=== PATIENT | male | born 1965 | race Caucasian/White ===

== ENCOUNTER 2018-01-07 11:21 | Emergency (ER) | payer BC ==
[2018-01-07 11:26] VITALS: TEMP 96.6
[2018-01-07] MEDS ORDERED: ADENOSINE 3 MG/ML 2 ML VIAL IVP STA (11:39)
[2018-01-07] MEDS ORDERED: SODIUM CHLORIDE 0.9% 1,000 ML IV STA (11:39)
--- NOTE | 2018-01-07 11:52 | ED ---
Chest Pain HPI - General Chief Complaint: Chest Pain Stated Complaint: Chest pain Time Seen by Provider: 01/07/18 11:30 Source: patient, RN notes reviewed Mode of arrival: wheelchair Limitations: no limitations - History of Present Illness Initial Comments: This is a 52-year-old male with a benign past history who states that about 30- 45 minutes prior to arrival he started developing dizziness with some pressure- like chest discomfort it was 7-8/10 in severity he just finished eating breakfast which included hurley and eggs or nothing unusual. He does not smoke he does not drink alcohol she has no prior history of heart or lung disease he does have older sister that had a pacer device placed however. No prior episodes such as this no other complaints at this time MD Complaint: chest pain, other - Related Data Home Medications Medication Instructions Recorded Confirmed Albuterol Inhaler [Ventolin Hfa 1 - 2 puff INHALATION RT-Q6H PRN 01/07/18 Inhaler] Ascorbic Acid [Vitamin C] 500 mg PO DAILY 01/07/18 01/07/18 Cholecalciferol [Vitamin D3] 1,000 unit PO DAILY 01/07/18 01/07/18 Desloratadine 5 mg PO HS 01/07/18 01/07/18 Fluticasone/Salmeterol [Advair 1 puff INHALATION RT-DAILY 01/07/18 01/07/18 500-50 Diskus] Li-Zyme Forte 1 tab PO DAILY 01/07/18 01/07/18 Magnesium 200 mg PO DAILY 01/07/18 01/07/18 Multivitamins, Thera [Multivitamin 1 tab PO DAILY 01/07/18 01/07/18 (formulary)] Pexeva 20mg 20 mg PO DAILY 01/07/18 01/07/18 clonazePAM [KlonoPIN] 0.25 mg PO BID 01/07/18 01/07/18 Previous Rx's Medication Instructions Recorded Verapamil Sr [Isoptin Sr] 120 mg PO DAILY #30 tablet.er 01/07/18 Allergies Allergy/AdvReac Type Severity Reaction Status Date / Time No Known Allergies Allergy Verified 01/07/18 12:16 Review of Systems ROS Statement: Those systems with pertinent positive or pertinent negative responses have been documented in the HPI. ROS Other: All systems not noted in ROS Statement are negative. EKG Findings - EKG Results: EKG: interpreted by ERMD (Initial EKG shows supraventricular tachycardia rate 198 QRS 80 QT since QTC of 234/[address] configuration.) Past Medical History Past Medical History: No Reported History History of Any Multi-Drug Resistant Organisms: Unobtainable Past Surgical History: No Surgical Hx Reported Past Psychological History: Depression Smoking Status: Never smoker Past Alcohol Use History: None Reported Past Drug Use History: None Reported General Exam - General Exam Comments Initial Comments: This is a well-developed well-nourished awake alert oriented 3 male Limitations: no limitations General appearance: alert, anxious, in distress Head exam: Present: atraumatic, normocephalic, normal inspection Eye exam: Present: normal appearance, PERRL, EOMI. Absent: scleral icterus, conjunctival injection, periorbital swelling ENT exam: Present: normal exam, mucous membranes moist Neck exam: Present: normal inspection. Absent: tenderness, meningismus, lymphadenopathy Respiratory exam: Present: normal lung sounds bilaterally. Absent: respiratory distress, wheezes, rales, rhonchi, stridor Cardiovascular Exam: Present: normal rhythm, tachycardia. Absent: systolic murmur, diastolic murmur, rubs, gallop, clicks GI/Abdominal exam: Present: soft, normal bowel sounds. Absent: distended, tenderness, guarding, rebound, rigid Extremities exam: Present: normal inspection, full ROM, normal capillary refill. Absent: tenderness, pedal edema, joint swelling, calf tenderness Back exam: Present: normal inspection Neurological exam: Present: alert, oriented X3, CN II-XII intact Psychiatric exam: Present: normal affect, normal mood Skin exam: Present: warm, dry, intact, normal color. 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 Patient did have SVT with conversion noted with brief episodes of PVCs then finally sinus rhythm. A repeat EKG done after the event shows a normal sinus rhythm of 84 GA interval 154 QRS 84 QT since QTC of 358/[address]-T wave changes. Procedures - Procedures Initial comment: The patient did demonstrate evidence of supraventricular tachycardia and did require chemical cardioversion. The patient had an IV established and 6 mg of adenosine was ordered. Patient's IV was in the left antecubital space. He 60 mg was administered followed by saline flush. Patient did respond with conversion to a normal sinus rhythm. Chest Pain MDM - [facility] X-rays unremarkable for acute findings. I did reevaluate patient several occasions he is feeling well with no recurrent symptoms. I did discuss findings with him and his . He does present with evidence of SVT and was successfully treated with adenosine discuss the case with Dr. Martínez was in the emergency department patient will be started on verapamil SR 120 mg and follow- up in the office. Critical Care Time Critical Care Time: Yes Critical Care Time: 33 minutes of critical care time which includes initial history physical monitoring while the patient was receiving a dental card. Several reevaluation of the patient to responsive therapy. Discussed with the patient family regarding findings discussed with cardiology. Documentation the above. Disposition Clinical Impression: Supraventricular tachycardia, Chest pain Disposition: HOME SELF-CARE Condition: Good Instructions: Chest Pain (ED), Supraventricular Tachycardia (ED) Prescriptions: Verapamil Sr [Isoptin Sr] 120 mg PO DAILY #30 tablet.er Referrals: Nonstaff,Physician [Primary Care Provider] - 1-2 days
--- NOTE | 2018-01-07 11:57 | XR ---
EXAMINATION TYPE: XR chest 2V DATE OF EXAM: 01/07/2018 HISTORY: dysrhythmia. REFERENCE: NONE. FINDINGS: The lungs are clear. Pleural spaces are clear. Heart size upper limits of normal. IMPRESSION: NO ACUTE INTRATHORACIC ABNORMALITY.
[2018-01-07 11:59] VITALS: RESP 18
[2018-01-07 12:03] LABS: Basophils # (A) 0.1 k/uL (0-0.2); Basophils % (A) 1 %; Eosinophils # (A) 0.6 k/uL (0-0.7); Eosinophils % (A) 6 %; HCT 48.1 % (39.0-53.0); HGB 15.7 gm/dL (13.0-17.5); Lymphocytes # (A) 2.9 k/uL (1.0-4.8); Lymphocytes % (A) 30 %; MCH 29.6 pg (25.0-35.0); MCHC 32.6 g/dL (31.0-37.0); MCV 90.7 fL (80.0-100.0); Mean Platelet Volume 7.2; Monocytes # (A) 0.7 k/uL (0-1.0); Monocytes % (A) 7 %; Neutrophils # (A) 5.2 k/uL (1.3-7.7); Neutrophils % (A) 53 %; Platelet Count 268 k/uL (150-450); RDW 13.1 % (11.5-15.5); WBC 9.8 k/uL (3.8-10.6)
[2018-01-07 12:12] LABS: ALT 31 U/L (21-72); AST 28 U/L (17-59); Albumin 4.5 g/dL (3.5-5.0); Alkaline Phosphatase 63 U/L (38-126); Anion Gap 13 mmol/L; Blood Urea Nitrogen 21 mg/dL (9-20); Calcium 10.2 mg/dL (8.4-10.2); Carbon Dioxide 22 mmol/L (22-30); Chloride 106 mmol/L (98-107); Glucose 101 mg/dL (74-99); Magnesium 2.1 mg/dL (1.6-2.3); Potassium 4.5 mmol/L (3.5-5.1); Sodium 141 mmol/L (137-145); Total Bilirubin 0.4 mg/dL (0.2-1.3); Total Protein 7.3 g/dL (6.3-8.2)
[2018-01-07 12:15] LABS: Prothrombin Time 9.6 sec (9.0-12.0)
[2018-01-07 12:20] LABS: D-Dimer 0.43 mg/L FEU (<0.60)
[2018-01-07 12:25] LABS: Creatine Kinase 75 U/L (55-170)
[2018-01-07 12:31] LABS: Partial Thromboplastin Time 21.7 sec (22.0-30.0)
[2018-01-07 12:39] LABS: Creatine Kinase MB <0.2 ng/mL (0.0-2.4); Troponin I <0.012 ng/mL (0.000-0.034)
[2018-01-07] MEDS ORDERED: VERAPAMIL SR 120 MG TABLET.ER PO STA (13:32)
[2018-01-07 14:35] VITALS: BP 109/81; PULSE 78
== END 2018-01-07 14:35 | disposition home or self-care (01) ==
LOC: EC 11:21
DX: I47.1 Supraventricular tachycardia (principal); F32.9 Major depressive disorder, single episode, unspecified; Z79.51 Long term (current) use of inhaled steroids; Z79.899 Other long term (current) drug therapy
CPT/HCPCS: 36415; 93005; 85379; 83880; 80053; 82550; 82553; 83735; 84443; 84484; 85025; 85610; 85730; 71046; 99285; 96374; 96361 ×3; J0153

== ENCOUNTER 2019-04-05 04:16 | Emergency (ER) | payer BC ==
[2019-04-05] MEDS ORDERED: IPRATROPIUM-ALBUTEROL 3 ML NEB INHALATION STA (04:30)
--- NOTE | 2019-04-05 05:16 | ED ---
SOB HPI - General Chief Complaint: Shortness of Breath Stated Complaint: Asthma attack Time Seen by Provider: 04/05/19 04:34 Source: patient, family Mode of arrival: ambulatory Limitations: no limitations - History of Present Illness Initial Comments: This patient is a 53-year-old man with history of asthma who presents with dyspnea and chest tightness that he states is similar to previous asthma exacerbation. The patient tried His rescue inhaler without much relief. States symptoms have been getting worse over the course of tonight. MD Complaint: shortness of breath, chest pain -: hour(s) Severity: moderate Quality: other (Tightness) Consistency: constant Improves With: nothing Worsens With: nothing Known History Of: asthma Treatments Prior to Arrival: none - Related Data Home Oxygen Therapy: No Home Medications Medication Instructions Recorded Confirmed Albuterol Inhaler [Ventolin Hfa 1 - 2 puff INHALATION RT-Q6H PRN 01/07/18 01/07/18 Inhaler] Ascorbic Acid [Vitamin C] 500 mg PO DAILY 01/07/18 01/07/18 Cholecalciferol [Vitamin D3] 1,000 unit PO DAILY 01/07/18 01/07/18 Desloratadine 5 mg PO HS 01/07/18 01/07/18 Fluticasone/Salmeterol [Advair 1 puff INHALATION RT-DAILY 01/07/18 01/07/18 500-50 Diskus] Li-Zyme Forte 1 tab PO DAILY 01/07/18 01/07/18 Magnesium 200 mg PO DAILY 01/07/18 01/07/18 Multivitamins, Thera [Multivitamin 1 tab PO DAILY 01/07/18 01/07/18 (formulary)] Pexeva 20mg 20 mg PO DAILY 01/07/18 01/07/18 clonazePAM [KlonoPIN] 0.25 mg PO BID 01/07/18 01/07/18 Previous Rx's Medication Instructions Recorded Verapamil Sr [Isoptin Sr] 120 mg PO DAILY #30 tablet.er 01/07/18 predniSONE 60 mg PO DAILY #30 tab 04/05/19 Allergies Allergy/AdvReac Type Severity Reaction Status Date / Time No Known Allergies Allergy Verified 04/05/19 04:24 Review of Systems ROS Statement: Those systems with pertinent positive or pertinent negative responses have been documented in the HPI. ROS Other: All systems not noted in ROS Statement are negative. Constitutional: Denies: fever, chills Respiratory: Reports: as per HPI, dyspnea. Denies: cough, hemoptysis Cardiovascular: Reports: as per HPI, chest pain. Denies: palpitations, orthopnea, edema Gastrointestinal: Denies: abdominal pain, nausea, vomiting Genitourinary: Denies: dysuria Musculoskeletal: Denies: back pain Skin: Denies: rash Neurological: Denies: headache, weakness, numbness Past Medical History Past Medical History: Asthma Additional Past Medical History / Comment(s): SVT History of Any Multi-Drug Resistant Organisms: None Reported Past Surgical History: No Surgical Hx Reported Past Psychological History: Depression Smoking Status: Never smoker Past Alcohol Use History: None Reported Past Drug Use History: None Reported General Exam Limitations: no limitations General appearance: alert, in no apparent distress Head exam: Present: atraumatic, normocephalic Eye exam: Present: normal appearance. Absent: scleral icterus, conjunctival injection ENT exam: Present: normal oropharynx Neck exam: Present: normal inspection Respiratory exam: Present: wheezes. Absent: respiratory distress, rales, rhonchi, stridor Cardiovascular Exam: Present: regular rate, normal rhythm, normal heart sounds. Absent: systolic murmur, diastolic murmur, rubs, gallop GI/Abdominal exam: Present: soft. Absent: distended, tenderness, guarding, rebound, rigid, mass Extremities exam: Present: normal inspection, normal capillary refill. Absent: pedal edema, calf tenderness Back exam: Present: normal inspection. Absent: CVA tenderness (R), CVA tenderness (L) Neurological exam: Present: alert Skin exam: Present: warm, dry, intact, normal color. Absent: rash Course Vital Signs 04/05/19 04/05/19 04/05/19 04:22 05:06 05:23 Temperature 97.7 F Pulse Rate 59 L 96 Respiratory 20 20 Rate Blood Pressure 127/89 O2 Sat by Pulse 100 Oximetry 04/05/19 05:28 Temperature Pulse Rate 96 Respiratory Rate Blood Pressure O2 Sat by Pulse Oximetry Medical Decision Making - Lab Data Result diagrams: 04/05/19 05:27 04/05/19 05:27 Lab Results 04/05/19 04/05/19 04/05/19 Range/Units 05:27 05:27 05:27 WBC 9.0 (3.8-10.6) k/uL RBC 5.18 (4.30-5.90) m/uL Hgb 15.1 (13.0-17.5) gm/dL Hct 46.1 (39.0-53.0) % MCV 88.9 (80.0-100.0) fL MCH 29.2 (25.0-35.0) pg MCHC 32.8 (31.0-37.0) g/dL RDW 14.2 (11.5-15.5) % Plt Count 283 (150-450) k/uL Neutrophils % 47 % Lymphocytes % 34 % Monocytes % 7 % Eosinophils % 6 % Basophils % 1 % Neutrophils # 4.3 (1.3-7.7) k/uL Lymphocytes # 3.0 (1.0-4.8) k/uL Monocytes # 0.7 (0-1.0) k/uL Eosinophils # 0.6 (0-0.7) k/uL Basophils # 0.1 (0-0.2) k/uL D-Dimer 0.31 (<0.60) mg/L FEU Sodium 140 (137-145) mmol/L Potassium 4.1 (3.5-5.1) mmol/L Chloride 108 H (98-107) mmol/L Carbon Dioxide 22 (22-30) mmol/L Anion Gap 10 mmol/L BUN 20 (9-20) mg/dL Creatinine 0.85 (0.66-1.25) mg/dL Est GFR (CKD-EPI)AfAm >90 (>60 ml/min/1.73 sqM) Est GFR (CKD-EPI)NonAf >90 (>60 ml/min/1.73 sqM) Glucose 104 H (74-99) mg/dL Calcium 9.8 (8.4-10.2) mg/dL Total Bilirubin 0.6 (0.2-1.3) mg/dL AST 30 (17-59) U/L ALT 27 (21-72) U/L Alkaline Phosphatase 65 (38-126) U/L Troponin I (0.000-0.034) ng/mL NT-Pro-B Natriuret Pep pg/mL Total Protein 7.5 (6.3-8.2) g/dL Albumin 4.6 (3.5-5.0) g/dL 04/05/19 04/05/19 Range/Units 05:27 05:27 WBC (3.8-10.6) k/uL RBC (4.30-5.90) m/uL Hgb (13.0-17.5) gm/dL Hct (39.0-53.0) % MCV (80.0-100.0) fL MCH (25.0-35.0) pg MCHC (31.0-37.0) g/dL RDW (11.5-15.5) % Plt Count (150-450) k/uL Neutrophils % % Lymphocytes % % Monocytes % % Eosinophils % % Basophils % % Neutrophils # (1.3-7.7) k/uL Lymphocytes # (1.0-4.8) k/uL Monocytes # (0-1.0) k/uL Eosinophils # (0-0.7) k/uL Basophils # (0-0.2) k/uL D-Dimer (<0.60) mg/L FEU Sodium (137-145) mmol/L Potassium (3.5-5.1) mmol/L Chloride (98-107) mmol/L Carbon Dioxide (22-30) mmol/L Anion Gap mmol/L BUN (9-20) mg/dL Creatinine (0.66-1.25) mg/dL Est GFR (CKD-EPI)AfAm (>60 ml/min/1.73 sqM) Est GFR (CKD-EPI)NonAf (>60 ml/min/1.73 sqM) Glucose (74-99) mg/dL Calcium (8.4-10.2) mg/dL Total Bilirubin (0.2-1.3) mg/dL AST (17-59) U/L ALT (21-72) U/L Alkaline Phosphatase (38-126) U/L Troponin I <0.012 (0.000-0.034) ng/mL NT-Pro-B Natriuret Pep 14 pg/mL Total Protein (6.3-8.2) g/dL Albumin (3.5-5.0) g/dL - EKG Data -: EKG Interpreted by [place] EKG shows normal: sinus rhythm, axis (Normal), intervals (Normal), QRS complexes (Normal), ST-T waves (Normal) Rate: normal (Rate 61 bpm) Interpretation: normal EKG Disposition Clinical Impression: Asthma exacerbation Disposition: HOME SELF-CARE Condition: Good Instructions (If sedation given, give patient instructions): Asthma (ED) Prescriptions: predniSONE 60 mg PO DAILY #30 tab Is patient prescribed a controlled substance at d/c from ED?: No Referrals: Nonstaff,Physician [Primary Care Provider] - 1-2 days
[2019-04-05 05:48] LABS: Basophils # (A) 0.1 k/uL (0-0.2); Basophils % (A) 1 %; Eosinophils # (A) 0.6 k/uL (0-0.7); Eosinophils % (A) 6 %; HCT 46.1 % (39.0-53.0); HGB 15.1 gm/dL (13.0-17.5); Lymphocytes % (A) 34 %; MCH 29.2 pg (25.0-35.0); MCHC 32.8 g/dL (31.0-37.0); MCV 88.9 fL (80.0-100.0); Mean Platelet Volume 7.4; Monocytes # (A) 0.7 k/uL (0-1.0); Monocytes % (A) 7 %; Neutrophils # (A) 4.3 k/uL (1.3-7.7); Neutrophils % (A) 47 %; Platelet Count 283 k/uL (150-450); RBC 5.18 m/uL (4.30-5.90); RDW 14.2 % (11.5-15.5)
[2019-04-05 05:49] LABS: ALT 27 U/L (21-72); AST 30 U/L (17-59); Albumin 4.6 g/dL (3.5-5.0); Alkaline Phosphatase 65 U/L (38-126); Anion Gap 10 mmol/L; Blood Urea Nitrogen 20 mg/dL (9-20); Calcium 9.8 mg/dL (8.4-10.2); Carbon Dioxide 22 mmol/L (22-30); Chloride 108 mmol/L (98-107); Glucose 104 mg/dL (74-99); Potassium 4.1 mmol/L (3.5-5.1); Sodium 140 mmol/L (137-145); Total Bilirubin 0.6 mg/dL (0.2-1.3); Total Protein 7.5 g/dL (6.3-8.2)
--- NOTE | 2019-04-05 05:53 | XR ---
EXAM: XR Chest, 2 Views CLINICAL HISTORY: ITS.REASON XR Reason: difficulty breathing TECHNIQUE: Frontal and lateral views of the chest. COMPARISON: 01/07/18 x-ray IMPRESSION: Normal heart size. No consolidation or pleural effusion.
[2019-04-05] MEDS ORDERED: predniSONE 20 MG TAB PO STA (06:28)
[2019-04-05 07:03] VITALS: BP 123/87; PULSE 58; RESP 18; TEMP 97.5
== END 2019-04-05 07:03 | disposition home or self-care (01) ==
LOC: EC 04:16
DX: J45.901 Unspecified asthma with (acute) exacerbation (principal); F32.9 Major depressive disorder, single episode, unspecified; Z79.899 Other long term (current) drug therapy
CPT/HCPCS: 36415; 71046; 80053; 83880; 84484; 85025; 85379; 93005; 94640; 99285

== ENCOUNTER 2024-08-02 14:38 | Inpatient (IN) | payer BC ==
[2024-08-02] MEDS ORDERED: ACETAMINOPHEN TAB 325 MG TAB PO PRN (14:45)
[2024-08-02] MEDS ORDERED: NALOXONE 0.4 MG/ML 1 ML VIAL IV PRN (14:45)
[2024-08-02] MEDS: HEPARIN SODIUM 1,000 UN/ML (10ML VL) IV ONE ×2 (14:47→15:13)
[2024-08-02] MEDS: ATORVASTATIN 80 MG TAB PO STA (14:47)
--- NOTE | 2024-08-02 14:49 | ED ---
General Adult HPI - General Chief complaint: Chest Pain Stated complaint: Chest pain Time Seen by Provider: 08/02/24 14:40 Source: patient, EMS, RN notes reviewed, old records reviewed Mode of arrival: EMS - History of Present Illness Initial comments: 59-year-old male presents with chief complaint of chest pain, chest pressure. Patient has no prior history of cardiac disease. He states he was [place], developed chest pressure followed by chest pain with associated nausea and diaphoresis. Patient had called [address] with [address] segment changes concerning for [place]. Patient was given aspirin and nitroglycerin in transport. - Related Data Home Medications Medication Instructions Recorded Confirmed Albuterol Inhaler [Ventolin Hfa 1 - 2 puff INHALATION RT-Q6H PRN 01/07/18 01/07/18 Inhaler] Ascorbic Acid [Vitamin C] 500 mg PO DAILY 01/07/18 01/07/18 Cholecalciferol [Vitamin D3] 1,000 unit PO DAILY 01/07/18 01/07/18 Desloratadine 5 mg PO HS 01/07/18 01/07/18 Fluticasone Propion/Salmeterol 1 puff INHALATION RT-DAILY 01/07/18 01/07/18 [Advair 500-50 Diskus] Li-Zyme Forte 1 tab PO DAILY 01/07/18 01/07/18 Magnesium 200 mg PO DAILY 01/07/18 01/07/18 Multivitamins, Thera [Multivitamin 1 tab PO DAILY 01/07/18 01/07/18 (formulary)] Pexeva 20mg 20 mg PO DAILY 01/07/18 01/07/18 clonazePAM [KlonoPIN] 0.25 mg PO BID 01/07/18 01/07/18 Previous Rx's Medication Instructions Recorded Verapamil Sr [Isoptin Sr] 120 mg PO DAILY #30 tablet.er 01/07/18 predniSONE 60 mg PO DAILY #30 tab 04/05/19 Allergies Allergy/AdvReac Type Severity Reaction Status Date / Time No Known Allergies Allergy Verified 08/02/24 14:44 Review of Systems ROS Statement: Those systems with pertinent positive or pertinent negative responses have been documented in the HPI. ROS Other: All systems not noted in ROS Statement are negative. Past Medical History Past Medical History: Asthma Additional Past Medical History / Comment(s): SVT History of Any Multi-Drug Resistant Organisms: None Reported Past Surgical History: No Surgical Hx Reported Additional Past Surgical History / Comment(s): Ablation 2021 Past Psychological History: Depression Smoking Status: Never smoker Past Alcohol Use History: None Reported Past Drug Use History: None Reported General Exam General appearance: alert, in distress Head exam: Present: atraumatic, normocephalic Eye exam: Present: normal appearance, PERRL ENT exam: Present: normal exam Neck exam: Present: normal inspection. Absent: tenderness, meningismus Respiratory exam: Present: normal lung sounds bilaterally. Absent: respiratory distress Cardiovascular Exam: Present: regular rate, normal rhythm GI/Abdominal exam: Present: soft. Absent: distended, tenderness, guarding Extremities exam: Present: normal inspection, normal capillary refill Neurological exam: Present: alert, oriented X3 Psychiatric exam: Present: anxious Skin exam: Present: diaphoretic. Absent: cyanosis Course Vital Signs 08/02/24 08/02/24 14:39 14:51 Pulse Rate 77 71 Respiratory 20 20 Rate Blood Pressure 115/79 112/73 O2 Sat by Pulse 97 97 Oximetry Medical Decision Making - Medical Decision Making Was pt. sent in by a medical professional or institution ([facility], [employer], urgent care, hospital, or snf...) When possible be specific @ -No Did you speak to anyone other than the patient for history (EMS, parent, family, police, friend...)? What history was obtained from this source @ -No Did you review nursing and triage notes (agree or disagree)? Why? @ -I reviewed and agree with nursing and triage notes Were old charts reviewed (outside hosp., previous admission, EMS record, old EKG, old radiological studies, urgent care reports/EKG's, snf records)? Report findings @ -No old charts were reviewed Differential Chest Pain: Stable Angina, Unstable Angina, STEMI, NSTEMI Aortic Dissection, Pneumothorax, Musculoskeletal, Esophageal Spasm GERD, Cholecystitis, Pancreatitis, Zoster, this is not meant to be an all-inclusive list. EKG interpreted by me (3pts min.). @ -[Sinus rhythm with ST segment elevation in lead I and the lateral precordial leads. This is more pronounced on paramedics EKG. Ventricular rate of 73, VT interval 178, QRS duration 99, QTc 412 X-rays interpreted by me (1pt min.). @Single view chest x-ray interpreted by me, no pneumothorax, no focal pneumonia, no acute findings CT interpreted by me (1pt min.). @ -None done U/S interpreted by me (1pt. min.). @ -None done What testing was considered but not performed or refused? (CT, X-rays, U/S, labs)? Why? @ -None What meds were considered but not given or refused? Why? @ -None Did you discuss the management of the patient with other professionals (professionals i.e. DrAngeles, PA, AGILE JAVA DEVELOPER, lab, RT, psych nurse, social insurance adviser, financial services agent, teacher, deputy probation officer, disease case manager)? Give summary @ -No Was smoking cessation discussed for >3mins.? @ -No Was critical care preformed (if so, how long)? @ -[Yes 35 minutes including prehospital evaluation of EKG Were there social determinants of health that impacted care today? How? (Homelessness, low income, unemployed, alcoholism, drug addiction, transportation, low edu. Level, literacy, decrease access to med. care, fci, rehab)? @ -No Was there de-escalation of care discussed even if they declined (Discuss DNR or withdrawal of care, Hospice)? DNR status @ -No What co-morbidities impacted this encounter? (DM, HTN, Smoking, COPD, CAD, Cancer, CVA, ARF, Chemo, Hep., AIDS, mental health diagnosis, sleep apnea, morb id obesity)? @ -None Was patient admitted / discharged? Hospital course, mention meds given and route, prescriptions, significant lab abnormalities, going to OR and other pertinent info. @ -[59-year-old male presenting with ST segment elevated [place] with typical features of chest pain, nausea and diaphoresis. Patient is given aspirin, nitroglycerin, heparin, Lipitor and taken emergently to the [facility] with Dr. Murray moya for cardiology. Case discussed with Dr. Rouse who will admit Undiagnosed new problem with uncertain prognosis? @ -No Drug Therapy requiring intensive monitoring for toxicity (Heparin, Nitro, Insulin, Cardizem)? @ -No Were any procedures done? @ -No Diagnosis/symptom? @ -[STEMI Acute, or Chronic, or Acute on Chronic? @Acute Uncomplicated (without systemic symptoms) or Complicated (systemic symptoms)? @ -Default Side effects of treatment? @ -No Exacerbation, Progression, or Severe Exacerbation? @ -No Poses a threat to life or bodily function? How? (Chest pain, [place], [place], pneumonia, PE, COPD, DKA, ARF, appy, cholecystitis, CVA, Diverticulitis, Homicidal, Suicidal, threat to staff... and all critical care pts) @ -[Yes, ACS Critical Care Time Critical Care Time: Yes Total Critical Care Time: 35 Disposition Clinical Impression: ST elevation myocardial infarction (STEMI) Disposition: ADMITTED IP TO THIS HOSP Condition: Serious Is patient prescribed a controlled substance at d/c from ED?: No Referrals: Nonstaff,Physician [Primary Care Provider] - 1-2 days Time of Disposition: 15:00
[2024-08-02 14:57] LABS: Basophils # (A) 0.1 k/uL (0-0.2); Basophils % (A) 1 %; Eosinophils # (A) 0.5 k/uL (0-0.7); Eosinophils % (A) 6 %; HCT 44.9 % (39.0-53.0); HGB 15.2 gm/dL (13.0-17.5); Lymphocytes # (A) 2.3 k/uL (1.0-4.8); Lymphocytes % (A) 26 %; MCH 29.9 pg (25.0-35.0); MCHC 33.8 g/dL (31.0-37.0); MCV 88.5 fL (80.0-100.0); Mean Platelet Volume 7.6; Monocytes # (A) 0.5 k/uL (0-1.0); Monocytes % (A) 6 %; Neutrophils # (A) 5.1 k/uL (1.3-7.7); Neutrophils % (A) 58 %; Platelet Count 320 k/uL (150-450); RBC 5.07 m/uL (4.30-5.90); RDW 13.7 % (11.5-15.5); WBC 8.8 k/uL (3.8-10.6)
[2024-08-02] MEDS: MIDAZOLAM 2 MG/2 ML VIAL IVP ONE (15:02)
[2024-08-02] MEDS: fentaNYL (PF) 50 MCG/1 ML VIAL IVP ONE (15:02)
[2024-08-02] MEDS: LIDOCAINE 1% INJ 10MG/ML (20 ML MDV) SQ ONE (15:04)
--- NOTE | 2024-08-02 15:04 | XR ---
EXAMINATION TYPE: XR chest 1V portable DATE OF EXAM: 08/02/2024 Comparison: 04/05/2019 Clinical History: 59-year-old male chest pain Findings: Heart normal size. Aorta and pulmonary vasculature within normal limits. No consolidation or pleural effusion. Hazy densities relating to portable technique and body habitus. Impression: No definite acute process. [facility], Workstation: [facility], 08/02/2024 3:01 PM
[2024-08-02] MEDS: VERAPAMIL 2.5 MG/ML 2 ML AMP INTRAARTER ONE (15:05)
[2024-08-02] MEDS: SODIUM CHLORIDE 0.9% 1,000 ML IV ONE (15:07)
[2024-08-02 15:15] LABS: INR 0.9 (<1.2); Partial Thromboplastin Time 23.5 sec (22.0-30.0); Prothrombin Time 10.4 sec (10.0-12.5)
[2024-08-02] MEDS: IOPAMIDOL-370 100ML BTL INJ ONE ×2 (15:20→15:21)
[2024-08-02] MEDS ORDERED: RX INFO: IV CONTRAST WAS GIVEN 1 EACH MISC MISCELLANE PRN (15:45)
[2024-08-02 15:50] LABS: ALT 33 U/L (4-49); AST 37 U/L (17-59); African American GFR (CKD) >90 (>60 ml/min/1.73 sqM); Albumin 4.3 g/dL (3.5-5.0); Alkaline Phosphatase 60 U/L (38-126); Anion Gap 10 mmol/L; Blood Urea Nitrogen 23 mg/dL (9-20); Calcium 10.1 mg/dL (8.4-10.2); Carbon Dioxide 20 mmol/L (22-30); Chloride 108 mmol/L (98-107); Glucose 149 mg/dL (74-99); Non-African American GFR(CKD) >90 (>60 ml/min/1.73 sqM); Sodium 138 mmol/L (137-145); Total Bilirubin 0.7 mg/dL (0.2-1.3); Total Protein 7.2 g/dL (6.3-8.2)
[2024-08-02] MEDS: SODIUM CHLORIDE 0.9% 1,000 ML IV SCH (16:17)
[2024-08-02] MEDS: LOSARTAN 25 MG TAB PO SCH (16:26)
[2024-08-02] MEDS: DAPAGLIFLOZIN PROPANEDIOL 10 MG TABLET PO SCH (16:26)
[2024-08-02] MEDS ORDERED: clonazePAM 0.5 MG TAB PO PRN (17:57)
[2024-08-02] MEDS ORDERED: ALBUTEROL HFA INHALER INHALATION PRN (17:57)
--- NOTE | 2024-08-02 18:00 | P.HPIM ---
History of Present Illness H&P Date: 08/02/24 Chief Complaint: chest pain Patient is a 59-year-old male with a past medical history of asthma and anxiety who presents to the ED for possible STEMI. Patient states that he was cutting wood and then started having left-sided pressure-like chest pain. Patient then went to go sit in the garage and thought it would go away. However the pain would not go away so went to his neighbor's house and had them call 911. In the EMS patient was given sublingual nitro which helped to relieve some of his pain. EKG showed ST elevations in the lateral leads. When patient arrived to the ED he was taken emergently for heart catheterization. I was told by the nurse that the heart cath was negative for any significant coronary disease but did reveal Takotsubo cardiomyopathy. At the time of this document the heart cath report is pending. Patient currently denying chest pain. ROS: 10 ROS reviewed and are negative except as noted in HPI Physical exam General: No acute distress Eye: [PERRL, EOMI, normal conjunctiva]. HENT: [Normocephalic, clear tympanic membranes, normal hearing, moist oral mucosa, no scleral icterus, no sinus tenderness]. Neck: [Supple, non-tender, no carotid bruits, no JVD, no lymphadenopathy]. Lungs: [Clear to auscultation and percussion, non-labored respiration]. Heart: [Normal rate, regular rhythm, no murmur, gallop or edema]. Abdomen: [Soft, non-tender, non-distended, normal bowel sounds, no masses]. Musculoskeletal: [Normal range of motion and strength, no tenderness or swelling]. Skin: [Skin is warm, dry and pink, no rashes or lesions]. Neurologic: [Awake, alert, and oriented X3, CN II-XII intact]. Psychiatric: [Cooperative, appropriate mood and affect]. Assessment and plan Chest pain likely due to stable angina Patient had heart cath and no intervention was done Cardiology following Takotsubo cardiomyopathy Cardiology started the patient on losartan and Farxiga Check echocardiogram Elevated troponin likely due to the above Follow-up on final read of the heart cath Asthma Stable Continue with home inhalers Anxiety Continue with clonazepam as needed DVT prophylaxis: Low VTE score. Encourage early ambulation Past Medical History Past Medical History: Asthma Additional Past Medical History / Comment(s): SVT History of Any Multi-Drug Resistant Organisms: None Reported Past Surgical History: No Surgical Hx Reported Additional Past Surgical History / Comment(s): Ablation 2021 Past Psychological History: Depression Smoking Status: Former smoker Past Alcohol Use History: None Reported Past Drug Use History: None Reported Medications and Allergies Home Medications Medication Instructions Recorded Confirmed Type Albuterol Inhaler [Ventolin Hfa 1 - 2 puff INHALATION RT-Q6H PRN 01/07/18 08/02/24 History Inhaler] Ascorbic Acid [Vitamin C] 500 mg PO DAILY 01/07/18 08/02/24 History Cholecalciferol [Vitamin D3] 1,000 unit PO DAILY 01/07/18 08/02/24 History Fluticasone Propion/Salmeterol 1 puff INHALATION RT-DAILY 01/07/18 08/02/24 History [Advair 500-50 Diskus] Magnesium 200 mg PO DAILY 01/07/18 08/02/24 History Multivitamins, Thera [Multivitamin 1 tab PO DAILY 01/07/18 08/02/24 History (formulary)] clonazePAM [KlonoPIN] 0.25 mg PO DAILY PRN 01/07/18 08/02/24 History Allergies Allergy/AdvReac Type Severity Reaction Status Date / Time No Known Allergies Allergy Verified 08/02/24 14:44 Physical Exam Osteopathic Statement: *. No significant issues noted on an osteopathic structural exam other than those noted in the History and Physical/Consult. Vitals: Vital Signs Temp Pulse Pulse Resp BP BP Pulse Ox 08/02/24 16:21 98.1 F 69 18 108/71 95 08/02/24 14:51 71 20 112/73 97 08/02/24 14:39 77 20 115/79 97 Intake and Output 08/02/24 08/02/24 08/02/24 06:59 14:59 22:59 Intake Total 150 Balance 150 Intake: IV 150 Other: Weight 81.647 kg 81.647 kg Results CBC & Chem 7: 08/02/24 14:40 08/02/24 14:40 Labs: Abnormal Lab Results - Last 24 Hours (Table) 08/02/24 08/02/24 Range/Units 14:40 14:40 Chloride 108 H (98-107) mmol/L Carbon Dioxide 20 L (22-30) mmol/L BUN 23 H (9-20) mg/dL Glucose 149 H (74-99) mg/dL Troponin I 0.231 H* (0.000-0.034) ng/mL
--- NOTE | 2024-08-02 20:52 | P.CRDCN ---
History of Present Illness Consult date: 08/02/24 History of present illness: HISTORY OF PRESENTING ILLNESS Patient is a 59-year-old with past medical history of asthma with no prior cardiovascular history presents the hospital because of complaining of left- sided substernal chest pressure like symptoms along with difficulty in breathing and nausea. On admission to ER there was concern of possible ST elevations in l ateral leads involving 1, aVL, V4 and V5. For this cardiology was contacted on emergency basis and STEMI was activated by the ER doctor. Bedside echocardiogram showed an EF of 35% with apical wall hypokinesia Due to these findings and active chest pain, decision was made to proceed with emergent cardiac catheterization for STEMI. Verbal consent was obtained after explaining the risk of stroke [place] or vascular injury. Patient understood these risks factors and agreed to proceed. He denies any history of smoking, recreational drug use marijuana use or alcohol use REVIEW OF SYSTEMS 14 point review of system is negative except what is mentioned above in HPI. PHYSICAL EXAMINATION Vital signs reviewed. Head: Normocephalic. Eyes: Sclerae nonicteric. Neck: Brisk carotid upstroke, no jugular venous distention. Lungs: Clear to auscultation. Heart: Regular rate and rhythm, S1-S2, no S3, no murmur or rub. Abdomen: Soft nontender, positive bowel sounds. Extremities: No edema, intact distal pulses. Neuro: Alert, oritented, no focal deficits. Detailed neuro exam was not performed. a ASSESSMENT Lateral STEMI Apical wall hypokinesia on bedside echocardiogram Substernal chest pressure PLAN Emergent cardiac catheterization Further recommendations to follow Antonio Gao MD, FACC, RPVI Thank you for allowing [facility] to participate in this patient's care. Feel free to reach out in case of any followup questions. Past Medical History Past Medical History: Asthma Additional Past Medical History / Comment(s): SVT History of Any Multi-Drug Resistant Organisms: None Reported Past Surgical History: No Surgical Hx Reported Additional Past Surgical History / Comment(s): Ablation 2021 Past Psychological History: Depression Smoking Status: Former smoker Past Alcohol Use History: None Reported Past Drug Use History: None Reported Medications and Allergies Home Medications Medication Instructions Recorded Confirmed Type Albuterol Inhaler [Ventolin Hfa 1 - 2 puff INHALATION RT-Q6H PRN 01/07/18 08/02/24 History Inhaler] Fluticasone Propion/Salmeterol 1 puff INHALATION RT-BID 01/07/18 08/02/24 History [Advair 500-50 Diskus] ALPRAZolam [Xanax] 0.25 mg PO HS 08/02/24 08/02/24 History FLUoxetine HCL [PROzac] 10 mg PO DAILY 08/02/24 08/02/24 History FLUoxetine HCL [PROzac] 20 mg PO DAILY 08/02/24 08/02/24 History Montelukast [Singulair] 10 mg PO HS 08/02/24 08/02/24 History tadalafiL 10 mg PO DAILY PRN 08/02/24 08/02/24 History traZODone HCL [Desyrel] 50 mg PO HS 08/02/24 08/02/24 History Allergies Allergy/AdvReac Type Severity Reaction Status Date / Time No Known Allergies Allergy Verified 08/02/24 18:23 Physical Exam Vitals: Vital Signs Temp Pulse Pulse Resp BP BP Pulse Ox 08/02/24 19:51 98.1 F 69 18 105/81 98 08/02/24 16:21 98.1 F 69 18 108/71 95 08/02/24 14:51 71 20 112/73 97 08/02/24 14:39 77 20 115/79 97 Intake and Output 08/02/24 08/02/24 08/02/24 06:59 14:59 22:59 Intake Total 410 Balance 410 Intake: IV 170 Invasive Line 1 10 Invasive Line 2 10 Oral 240 Other: Weight 81.647 kg 81.647 kg Results 08/02/24 14:40 08/02/24 14:40 Cardiac Enzymes 08/02/24 08/02/24 Range/Units 14:40 14:40 AST 37 (17-59) U/L Troponin I 0.231 H* (0.000-0.034) ng/mL Coagulation 08/02/24 Range/Units 14:40 PT 10.4 (10.0-12.5) sec APTT 23.5 (22.0-30.0) sec CBC 08/02/24 Range/Units 14:40 WBC 8.8 (3.8-10.6) k/uL RBC 5.07 (4.30-5.90) m/uL Hgb 15.2 (13.0-17.5) gm/dL Hct 44.9 (39.0-53.0) % Plt Count 320 (150-450) k/uL Comprehensive Metabolic Panel 08/02/24 Range/Units 14:40 Sodium 138 (137-145) mmol/L Potassium 4.0 (3.5-5.1) mmol/L Chloride 108 H (98-107) mmol/L Carbon Dioxide 20 L (22-30) mmol/L BUN 23 H (9-20) mg/dL Creatinine 0.87 (0.66-1.25) mg/dL Glucose 149 H (74-99) mg/dL Calcium 10.1 (8.4-10.2) mg/dL AST 37 (17-59) U/L ALT 33 (4-49) U/L Alkaline Phosphatase 60 (38-126) U/L Total Protein 7.2 (6.3-8.2) g/dL Albumin 4.3 (3.5-5.0) g/dL Current Medications Generic Name Dose Route Start Last Admin Trade Name Anilq PRN Reason Stop Dose Admin Acetaminophen 650 mg 08/02/24 14:45 Acetaminophen Tab 325 Mg Tab PO Q6HR PRN Mild Pain or Fever > 100.5 Albuterol Sulfate 2 puff 08/02/24 17:57 Albuterol Hfa Inhaler INHALATION RT-Q6H PRN Shortness Of Breath Budesonide/Formoterol Fumarate 2 puff 08/03/24 08:00 Symbicort 160-4.5 Mcg Inhaler INHALATION RT-BID KVNG Dapagliflozin 10 mg 08/02/24 16:00 08/02/24 16:26 Dapagliflozin Propanediol 10 Mg Tablet PO 10 mg DAILY KVNG Administration Losartan Potassium 12.5 mg 08/02/24 16:00 08/02/24 16:26 Losartan 25 Mg Tab PO 12.5 mg DAILY KVNG Administration Magnesium Oxide 200 mg 08/03/24 09:00 Magnesium Oxide 400 Mg Tab PO DAILY [facility] Miscellaneous Information 1 each 08/02/24 15:45 Rx Info: Iv Contrast Was Given 1 Each Misc MISCELLANE 08/04/24 15:45 DAILY PRN Per Protocol Multivitamins 1 each 08/03/24 09:00 Multivitamins, Thera 1 Each Tab PO DAILY KVNG Naloxone HCl 0.2 mg 08/02/24 14:45 Naloxone 0.4 Mg/Ml 1 Ml Vial IV Q2M PRN Opioid Reversal Nitroglycerin 0.4 mg 08/02/24 14:40 Nitroglycerin Sl Tabs 0.4 Mg Tab SUBLINGUAL Q5M PRN Chest Pain Intake and Output 08/02/24 08/02/24 08/02/24 06:59 14:59 22:59 Intake Total 410 Balance 410 Intake: IV 170 Invasive Line 1 10 Invasive Line 2 10 Oral 240 Other: Weight 81.647 kg 81.647 kg Patient Weight 08/03/24 06:59 Weight 81.647 kg 08/02/24 14:40 08/02/24 14:40
--- NOTE | 2024-08-02 20:55 | P.CARDCATH ---
Date of Procedure: 08/02/24 Description of Procedure: DIAGNOSTIC CORONARY ANGIOGRAPHY and LEFT HEART CATH REPORT PROCEDURES PERFORMED: Left heart catheterization Selective coronary angiography Left ventriculography Moderate conscious sedation 20 mins Right radial access INDICATION: Lateral STEMI CONSENT: I have explained the procedural steps of above-mentioned procedures in layman's terms to the patient. I discussed the risks (including but not limited to stroke, emergent vascular or cardiac surgery or ), benefits and al ternative therapies for the above-mentioned procedure. I discussed the risks of sedation/analgesia and blood product administration (if indicated). The patient has indicated understanding and acceptance of these risks. Conscious Sedation: Patient's ECG, heart rate, blood pressure, pulse oximetry were monitored throughout the duration of procedure under my direct supervision. [2] mg Versed and [50] mcg Fentanyl were used for induction of moderate conscious sedation. Total duration of moderate concious sedation 20 minutes. PROCEDURE: After explaining the risks, benefits and alternatives of the above mentioned procedures in detail to the patient, informed consent was obtained. Patient was taken to the catheterization lab, prepped and draped in usual sterile fashion using universal precuations. Ultrasound was used to identify the radial artery. 1% lidocaine was infiltrated over the right radial artery. A 6-[place] sheath was placed and secured in the right radial artery using modified Seldinger technique. The sheath was flushed and 5 mg verapamil was administered intra-arterially. J tipped wire was advanced under fluoroscopic guidance. Once the wire tip reached aortic root [5000] units of IV heparin was given. Over the wire JR4 diagnostic catheter was advanced. The wire in place the catheter was manipulated to cross the aortic valve and entered into LV under fluoroscopy guidance. The wire was removed and the catheter was flushed. LV pressures were obtained and pullback was performed under fluoroscopy. Catheter was manipulated to selectively engage the right coronary ostium. Right coronary angiography was performed in different angiographic projections. The JR4 diagnostic catheter was exchanged for a JL 3.5 diagnostic catheter over the J-wire. The wire was removed, catheter was flushed and manipulated under fluoroscopy to selectively engaged the left coronary ostium. Left coronary angioplasty was performed in different angiographic projections. Pigtail catheter was utilized to cross the aortic valve with the help of a wire. The wire was removed and the catheter was flushed. Using a power injector left- ventricular gram was performed. Catheter was removed over the wire. Radial sheath was flushed. The right radial sheath was removed and a TR band was placed with excellent patent hemostasis was achieved. The patient tolerated the procedure well. Patient was transported back to the post catheterization holding area in stable condition. Angiographic images were reviewed in detail. HEMODYNAMICS: Aortic Pressure: 100/64 mmHg. LV pressure: 108/0 mmHg. LVEDP 22 mmHg. There was no significant gradient across the aortic valve. SELECTIVE CORONARY ARTERIOGRAPHY: LEFT MAIN: The left main is short and large caliber vessel. It bifurcates into the LAD and circumflex. Left main appears angiographically normal. LEFT ANTERIOR DESCENDING CORONARY ARTERY: LAD is a large caliber vessel which wraps around to the apex. Proximal LAD appears angiographically normal. Mid LAD appears angiographically normal. Distal LAD appears angiographically normal. It gives rise to 2 diagonal branches which appear angiographically normal. LEFT CIRCUMFLEX CORONARY ARTERY: It is nondominant vessel. Left circumflex is a moderate caliber vessel. It appears angiographically normal. LCx gives rise to small OM branches which are angiographically patent. RIGHT CORONARY ARTERY: Dominant vessel. The right coronary artery is a large caliber vessel which gives PDA and PLV branch. It appears angiographically normal. Left ventriculography showed an EF of 30 to 35% with large apical wall akinesia with hyperdynamic base. IMPRESSION: Angiographically normal coronary arteries as described above. Elevated LVEDP Apical hypokinesia with hyperdynamic base, findings consistent with Takotsubo cardiomyopathy PLAN: 75 cc/h for 5 hours Obtain echocardiogram Start losartan 12.5 mg, Jardiance 10 mg daily. Monitor blood pressure heart rate and kidney function. Further recommendations to follow Performing Physician Antonio Gao MD, FACC, RPVI Thank you for allowing [facility] to participate in this patient's care. Feel free to reach out in case of any followup questions.
[2024-08-03 06:47] LABS: Basophils # (A) 0.1 k/uL (0-0.2); Basophils % (A) 1 %; Eosinophils # (A) 0.4 k/uL (0-0.7); Eosinophils % (A) 4 %; HCT 45.6 % (39.0-53.0); HGB 15.2 gm/dL (13.0-17.5); Lymphocytes # (A) 1.9 k/uL (1.0-4.8); Lymphocytes % (A) 16 %; MCH 30.1 pg (25.0-35.0); MCHC 33.3 g/dL (31.0-37.0); MCV 90.2 fL (80.0-100.0); Mean Platelet Volume 7.7; Monocytes # (A) 0.7 k/uL (0-1.0); Monocytes % (A) 6 %; Neutrophils # (A) 8.5 k/uL (1.3-7.7); Neutrophils % (A) 71 %; Platelet Count 270 k/uL (150-450); RBC 5.06 m/uL (4.30-5.90); RDW 13.6 % (11.5-15.5); WBC 11.9 k/uL (3.8-10.6)
[2024-08-03 07:05] LABS: ALT 31 U/L (4-49); AST 47 U/L (17-59); African American GFR (CKD) >90 (>60 ml/min/1.73 sqM); Albumin 3.9 g/dL (3.5-5.0); Alkaline Phosphatase 58 U/L (38-126); Anion Gap 4 mmol/L; Blood Urea Nitrogen 18 mg/dL (9-20); Calcium 9.4 mg/dL (8.4-10.2); Carbon Dioxide 22 mmol/L (22-30); Chloride 108 mmol/L (98-107); Glucose 96 mg/dL (74-99); Non-African American GFR(CKD) >90 (>60 ml/min/1.73 sqM); Potassium 4.2 mmol/L (3.5-5.1); Sodium 134 mmol/L (137-145); Total Bilirubin 0.9 mg/dL (0.2-1.3); Total Protein 6.6 g/dL (6.3-8.2)
[2024-08-03 07:11] LABS: NT-Pro-B-Type Natriuretic Pept 1570 pg/mL
[2024-08-03] MEDS: NITROGLYCERIN SL TABS 0.4 MG TAB SUBLINGUAL PRN (08:18)
[2024-08-03] MEDS: SYMBICORT 160-4.5 MCG INHALER INHALATION SCH (08:20)
[2024-08-03] MEDS: MAGNESIUM OXIDE 400 MG TAB PO SCH (08:42)
[2024-08-03] MEDS: MULTIVITAMINS, THERA 1 EACH TAB PO SCH (08:42)
[2024-08-03 11:43] LABS: Chol/HDL Ratio 4.09 Ratio; LDL Cholesterol,Calculated 137.8 mg/dL (0.0-131.0)
[2024-08-03] MEDS: FLUoxetine HCL 10 MG CAP PO SCH (12:14)
[2024-08-03] MEDS: FLUoxetine HCL 20 MG CAP PO SCH (12:14)
[2024-08-03] MEDS: FAMOTIDINE 20 MG TAB PO SCH (12:14)
[2024-08-03] MEDS: METOPROLOL TARTRATE 12.5 MG TAB PO SCH (12:14)
--- NOTE | 2024-08-03 12:18 | CA ---
Transthoracic Echo Report Name: Elliot Dubose Age: 59 Gender: M : 1965 Exam Date: 08/02/2024 15:59 Exam Location: [facility] Ht (in): 65 Wt (lb): 180 Ordering Physician: Antonio Gao MD ([id number]) Attending/Referring Phys: Fire Prevention Specialist Sadaf Ricardo RDCS Procedure CPT: Indications: Takostubo cardiomyopathy Cardiac Hx: Technical Quality: Technically difficult study Contrast 1: Definity Total Dose (mL): 2 Contrast 2: Total Dose (mL): MEASUREMENTS (Male / Female) Normal Values 2D ECHO LV Diastolic Diameter PLAX 5.2 cm 4.2 - 5.9 / 3.9 - 5.3 cm LV Systolic Diameter PLAX 4.2 cm IVS Diastolic Thickness 0.8 cm 0.6 - 1.0 / 0.6 - 0.9 cm LVPW Diastolic Thickness 1.0 cm 0.6 - 1.0 / 0.6 - 0.9 cm LV Relative Wall Thickness 0.4 LVOT Diameter 2.3 cm LV Diastolic Volume MOD 4C 184.9 cm??? LV Systolic Volume MOD 4C 117.1 cm??? LV Ejection Fraction MOD 4C 36.7 % LV Cardiac Index MOD 4C 2282.4 cm???/min???m??? LV Diastolic Length 4C 9.0 cm LV Systolic Length 4C 8.2 cm LA Volume 59.5 cm??? 18 - 58 / 22 - 52 cm??? LA Volume Index 30.4 cm???/m??? 16 - 28 cm???/m??? Ascending Aorta Diameter 4.1 cm DOPPLER AV Peak Velocity 147.5 cm/s AV Peak Gradient 8.7 mmHg AV Mean Velocity 112.0 cm/s AV Mean Gradient 5.5 mmHg AV Velocity Time Integral 32.6 cm LVOT Peak Velocity 111.4 cm/s LVOT Peak Gradient 5.0 mmHg LVOT Velocity Time Integral 20.5 cm LVOT Stroke Volume 83.2 cm??? LVOT Stroke Volume Index 44.0 ml/m??? LVOT Cardiac Index 2799.9 cm???/min???m??? AV Area Cont Eq vti 2.6 cm??? AV Area Cont Eq pk 3.1 cm??? MV Area PHT 4.6 cm??? Mitral E Point Velocity 48.5 cm/s Mitral A Point Velocity 44.1 cm/s Mitral E to A Ratio 1.1 MV Deceleration Time 166.0 ms TR Peak Velocity 206.8 cm/s TR Peak Gradient 17.1 mmHg Right Atrial Pressure 5.0 mmHg Pulmonary Artery Systolic Pressu 22.1 mmHg Right Ventricular Systolic Press 22.1 mmHg PV Peak Velocity 87.1 cm/s PV Peak Gradient 3.0 mmHg FINDINGS Left Ventricle Left ventricular ejection fraction is estimated at 35-40 %. Left ventricular cavity size normal. Left ventricular wall thickness normal. Global hypokinesis with regional variability. Akinetic apex. Right Ventricle Normal right ventricular size and function. Right ventricular systolic pressure within normal limits. Right Atrium Right atrium not well visualized. Left Atrium Mildly increased left atrial volume. Mildly increased left atrial area. Mitral Valve Structurally normal mitral valve. No mitral stenosis, regurgitation or prolapse. Aortic Valve Trileaflet aortic valve. No aortic stenosis. Mild aortic regurgitation. Tricuspid Valve Structurally normal tricuspid valve. No tricuspid stenosis. Trace tricuspid regurgitation. Pulmonic Valve Structurally normal pulmonic valve. Mild pulmonic regurgitation. No pulmonic stenosis. Pericardium No pericardial effusion. Aorta Mildly enlarged sinus of valsalva and ascending aorta. CONCLUSIONS Diagnosis acute myocardial injury, possible CA 2D echo shows severe LV dysfunction ejection fraction less than 35% with large anterior apical area of akinesis/aneurysm without intracardiac mass or thrombus Only the basal one third of the LV contracts well Likely Takotsubo/stress cardiomyopathy Previewed by: Dr. Quinton Patrick MD (Electronically Signed) Final Date: 03 August 2024 12:17
--- NOTE | 2024-08-03 13:15 | P.PN ---
Subjective Progress Note Date: 08/03/24 The patient is a 59-year-old male who presented to the hospital with acute onset of chest discomfort. He was ruled in for non-ST elevated myocardial infarction, but was found to have normal coronary arteries via angiogram. He was noted to have apical hypokinesia with a hyperdynamic base, consistent with Takotsubo cardiomyopathy. Echocardiogram confirms reduced ejection fraction at 35% Overnight the patient had done relatively well until early this morning when he again had sharp chest discomfort. He was given several nitroglycerin, which did not improve his discomfort, but the patient developed hypotension. Patient interviewed and examined resting comfortably in bed currently. No current chest discomfort. No current shortness of breath or palpitations. GENERAL: Well-appearing, well-nourished and in no acute distress. NECK: Supple without JVD or thyromegaly. LUNGS: Breath sounds clear to auscultation bilaterally. Respiration equal and unlabored. No wheezes, rales or rhonchi. HEART: Regular rate and rhythm without murmurs, rubs or gallops. S1 and S2 heard. EXTREMITIES: Normal range of motion, no edema. No clubbing or cyanosis. Peripheral pulses intact and strong. Right radial site is healed TELEMETRY: Sinus rhythm overnight LABS: WBC 11.9, hemoglobin 15.2, hematocrit 45.6, platelet 270, sodium 134, potassium 4.2, BUN 18, creatinine 0.85, AST 47, ALT 31, BNP 1570, triglycerides 108, LDL 137, HDL 51 and TSH 2.5 IMPRESSION: Chest discomfort Takotsubo cardiomyopathy PLAN: Start GI prophylaxis Start beta-nandini for cardiomyopathy Continue Farxiga and losartan Further recommendations to be based upon clinical course I am dictating on behalf of Dr Quinton Patrick's history/physical and assessment/plan. Objective - Vital Signs Vital signs: Vital Signs Temp 97.5 F L 08/03/24 12:50 Pulse 73 08/03/24 12:50 Resp 20 08/03/24 12:50 BP 107/67 08/03/24 12:50 Pulse Ox 94 L 08/03/24 12:50 FiO2 Intake & Output 08/02/24 08/03/24 08/03/24 18:59 06:59 18:59 Intake Total 390 395 Balance 390 395 Weight 81.647 kg 81.3 kg Intake: IV 150 20 Invasive Line 1 10 Invasive Line 2 10 Intake, IV Titration 375 Amount Sodium Chloride 0.9% 1, 375 000 ml @ 75 mls/hr IV . [id number] [facility] Rx#:[id number] Oral 240 Other: Voiding Method Toilet # Voids 1 - Labs CBC & Chem 7: 08/03/24 06:28 08/03/24 06:28 Labs: Abnormal Lab Results - Last 24 Hours (Table) 08/02/24 08/02/24 08/03/24 Range/Units 14:40 14:40 06:28 WBC 11.9 H (3.8-10.6) k/uL Neutrophils # 8.5 H (1.3-7.7) k/uL Sodium (137-145) mmol/L Chloride 108 H (98-107) mmol/L Carbon Dioxide 20 L (22-30) mmol/L BUN 23 H (9-20) mg/dL Glucose 149 H (74-99) mg/dL Troponin I 0.231 H* (0.000-0.034) ng/mL Cholesterol (0.00-200.00) mg/dL LDL Cholesterol, Calc (0.0-131.0) mg/dL 08/03/24 Range/Units 06:28 WBC (3.8-10.6) k/uL Neutrophils # (1.3-7.7) k/uL Sodium 134 L (137-145) mmol/L Chloride 108 H (98-107) mmol/L Carbon Dioxide (22-30) mmol/L BUN (9-20) mg/dL Glucose (74-99) mg/dL Troponin I (0.000-0.034) ng/mL Cholesterol 211.00 H (0.00-200.00) mg/dL LDL Cholesterol, Calc 137.8 H (0.0-131.0) mg/dL
--- NOTE | 2024-08-03 13:15 | XR ---
EXAMINATION TYPE: XR chest 2V DATE OF EXAM: 08/03/2024 1:04 PM CLINICAL INDICATION: Male, 59 years old with history of chest pain; COMPARISON: Chest radiographs from08/02/2024 TECHNIQUE: XR chest 2V Frontal view of the chest. FINDINGS: Lungs/Pleura: There is no evidence of pleural effusion, focal consolidation, or pneumothorax. Pulmonary vascularity: Unremarkable. Heart/mediastinum: Cardiomediastinal silhouette is unremarkable. Musculoskeletal: No acute osseous pathology. IMPRESSION: No acute cardiopulmonary disease/process. [facility], , 08/03/2024 1:13 PM
--- NOTE | 2024-08-03 14:16 | P.PN ---
Subjective Progress Note Date: 08/03/24 Patient is a 59-year-old with known asthma, prior SVT, and prior tobacco use who presented to the emergency department with complaints of chest pain. In the emergency department he underwent extensive evaluation. Initial vital signs are within normal limits. Initial laboratory analysis was remarkable for a troponin of 0.231. He was seen by cardiology and underwent cardiac catheterization which showed normal coronary arteries but findings consistent with Takotsubo's cardiomyopathy and ejection fraction of 30 to 35%. Patient seen and examined at bedside. Continued complaints of chest pain with deep inspiration. Denies any lightheadedness, dizziness. Is having some shortness of breath lying flat. Denies any nausea or vomiting. Discussed with nursing patient had episode of chest pain with vomiting today. Patient confirms he still has his gallbladder. Vital signs reviewed General: Nontoxic, no distress, appears at stated age Cardiovascular: S1S2 reg, no murmur Lungs: CTA bilateral, no rhonchi, no rales, no accessory muscle use Abdominal: Soft, nontender to palpation, no guarding Ext: No gross muscle atrophy, no edema b/l lower extremities, no contractures Neuro: CN II-XI grossly intact, no focal neuro deficits Psych: Alert, oriented, appropriate affect Assessment/Plan: Ongoing chest pain Takotsubo's Systolic cardiomyopathy with EF 30 to 35% Non-STEMI, type II -Cardiac catheterization with Takotsubo's cardiomyopathy, without clinically significant coronary artery disease -Chest x-ray ordered and shows no acute process -Check CTA chest to rule out pulmonary embolism -Check gallbladder ultrasound to rule out gallstone disease though liver fu nction testing is normal -Repeat CBC and CMP in a.m. -Metoprolol 12.5 mg twice daily, dapagliflozin 10 mg daily -Check orthostatic blood pressures. Follow blood pressure closely. -Patient with ongoing chest pain despite cardiac catheterization with normal coronary arteries. Will proceed with CT of the chest to rule out pulmonary embolism. Given ongoing chest pain, hemodynamic instability with blood pressure dropping to 97/41 and episode of vomiting today patient warrants continued monitoring. Dyslipidemia -ASCVD risk score 5.8% with recommendations for medium intensity statin -Will initiate on discharge Imaging: Chest x-ray ordered and reviewed by myself which reveals no acute cardiopu lmonary process Echocardiogram: EF with ejection fraction less than 35% with large anterior apical area of akinesis or aneurysm without intracardiac mass or thrombus likely Takotsubo's. Right ventricle with normal ventricular size and function, RVSP within normal limits. Data Review: Pertinent Labs: Total cholesterol 211, LDL 137.8, HDL 51.6. WBC 11.9 DVT prophylaxis: Early ambulation Anticipated discharge date: 24 to [address]: Home This dictation was prepared using [employer] voice recognition software. Though every attempt is made to correct errors during dictation some may still exist. Objective - Vital Signs Vital signs: Vital Signs Temp 97.5 F L 08/03/24 12:50 Pulse 73 08/03/24 12:50 Resp 20 08/03/24 12:50 BP 107/67 08/03/24 12:50 Pulse Ox 94 L 08/03/24 12:50 FiO2 Intake & Output 08/02/24 08/03/24 08/03/24 18:59 06:59 18:59 Intake Total 390 395 Balance 390 395 Weight 81.647 kg 81.3 kg Intake: IV 150 20 Invasive Line 1 10 Invasive Line 2 10 Intake, IV Titration 375 Amount Sodium Chloride 0.9% 1, 375 000 ml @ 75 mls/hr IV . [id number] [facility] Rx#:[id number] Oral 240 Other: Voiding Method Toilet # Voids 1 - Labs CBC & Chem 7: 08/03/24 06:28 08/03/24 06:28 Labs: Abnormal Lab Results - Last 24 Hours (Table) 08/02/24 08/02/24 08/03/24 Range/Units 14:40 14:40 06:28 WBC 11.9 H (3.8-10.6) k/uL Neutrophils # 8.5 H (1.3-7.7) k/uL Sodium (137-145) mmol/L Chloride 108 H (98-107) mmol/L Carbon Dioxide 20 L (22-30) mmol/L BUN 23 H (9-20) mg/dL Glucose 149 H (74-99) mg/dL Troponin I 0.231 H* (0.000-0.034) ng/mL Cholesterol (0.00-200.00) mg/dL LDL Cholesterol, Calc (0.0-131.0) mg/dL 08/03/24 Range/Units 06:28 WBC (3.8-10.6) k/uL Neutrophils # (1.3-7.7) k/uL Sodium 134 L (137-145) mmol/L Chloride 108 H (98-107) mmol/L Carbon Dioxide (22-30) mmol/L BUN (9-20) mg/dL Glucose (74-99) mg/dL Troponin I (0.000-0.034) ng/mL Cholesterol 211.00 H (0.00-200.00) mg/dL LDL Cholesterol, Calc 137.8 H (0.0-131.0) mg/dL
--- NOTE | 2024-08-03 14:53 | US ---
EXAMINATION TYPE: US gallbladder DATE OF EXAM: 08/03/2024 Exam done portable COMPARISON: NONE CLINICAL INDICATION: Male, 59 years old with history of pain and vomiting; TECHNIQUE: Multiple sonographic images of the right upper quadrant are obtained. FINDINGS: EXAM MEASUREMENTS: Liver Length: 13.5 cm Gallbladder Wall: 0.2 cm CBD: 0.4 cm Right Kidney: 9.8 x 5.0 x 4.5 cm Pancreas: obscured by overlying midline bowel gas Liver: scanned intercostally, appears wnl as seen Gallbladder: multiple hyperechoic foci along wall with largest measuring 0.3cm - possible polyps Evidence for sonographic Oconnor's sign: no CBD: visualized portions wnl, limited by overlying bowel gas Right Kidney: wnl IMPRESSION: 1. No evidence for acute process. 2. Gallbladder polyps versus adherent gallstones. Consider short-term follow-up in 6 months to ensur e stability. [facility], Workstation: [id number], 08/03/2024 2:51 PM
--- NOTE | 2024-08-03 15:18 | CT ---
EXAMINATION TYPE: CT angio chest CT DLP: 379.1 mGycm, Automated exposure control for dose reduction was used. DATE OF EXAM: 08/03/2024 2:47 PM COMPARISON: Chest radiograph from same day. CLINICAL INDICATION: Male, 59 years old with history of pulmonary embolism; R/O PE. TECHNIQUE/CONTRAST: CTA scan of the thorax is performed with IV Contrast, patient injected with 100 ml mL of Isovue 370, MIP images are created and reviewed these are created on a separate workstation.. FINDINGS: Pulmonary Artery: There is no evidence for a central filling defect within the pulmonary vasculature to suggest acute pulmonary embolism. Limited evaluation of the segmental and subsegmental branches se condary to bolus timing. The pulmonary artery is of normal size. Lungs/Pleura: No evidence of focal consolidation, pleural effusion or pneumothorax. Airway: Large airways are patent. Heart: Heart is within normal limits for size. Vasculature: No evidence of aortic aneurysm. Ectasia of ascending thoracic aorta up to 43 mm Mediasti num: No gross evidence of adenopathy. Musculoskeletal: No acute osseous abnormalities Soft Tissues/lymph nodes: Unremarkable. Lower neck: No significant findings. Upper Abdomen: Scattered colonic diverticular. Scattered simple appearing probable cyst. IMPRESSION: 1. No evidence of central pulmonary embolism. Limited evaluation of the segmental and subsegmental br anches. 2. Ascending thoracic aorta ectasia up to 43 mm. Follow up recommendations for incidental pulmonary nodules, if there are any, are per [employer] or [place]. https://radiopaedia.org/articles/rdtmkkjbsl-nmruiqb-ayciwzhve-[email or web address]-[email or web address]?lang=us [facility], , 08/03/2024 3:15 PM
[2024-08-03] MEDS: ALPRAZolam 0.25 MG TAB PO SCH (20:59)
[2024-08-03] MEDS: MONTELUKAST 10 MG TAB PO SCH (20:59)
[2024-08-03] MEDS: traZODone HCL 50 MG TAB PO SCH (20:59)
--- NOTE | 2024-08-04 07:27 | XR ---
EXAMINATION TYPE: XR chest 2V DATE OF EXAM: 08/04/2024 COMPARISON: 08/03/2024 INDICATION: Chest pain short of breath TECHNIQUE: Frontal and lateral views of the chest are obtained. FINDINGS: The heart size is normal. The pulmonary vasculature is normal. The lungs are clear. IMPRESSION: 1. No acute pulmonary process. [facility], , 08/04/2024 7:25 AM
[2024-08-04 08:13] LABS: HCT 47.1 % (39.0-53.0); MCH 28.9 pg (25.0-35.0); MCHC 31.7 g/dL (31.0-37.0); Platelet Count 308 k/uL (150-450); RBC 5.18 m/uL (4.30-5.90); RDW 13.3 % (11.5-15.5); WBC 10.5 k/uL (3.8-10.6)
[2024-08-04 08:38] LABS: Anion Gap 8 mmol/L; Blood Urea Nitrogen 21 mg/dL (9-20); Carbon Dioxide 21 mmol/L (22-30); Chloride 108 mmol/L (98-107); Glucose 95 mg/dL (74-99); Potassium 4.3 mmol/L (3.5-5.1); Sodium 137 mmol/L (137-145)
[2024-08-04 08:39] LABS: ALT 27 U/L (4-49); AST 40 U/L (17-59); African American GFR (CKD) >90 (>60 ml/min/1.73 sqM); Albumin 3.9 g/dL (3.5-5.0); Alkaline Phosphatase 55 U/L (38-126); Calcium 9.2 mg/dL (8.4-10.2); Magnesium 2.1 mg/dL (1.6-2.3); Non-African American GFR(CKD) 83 (>60 ml/min/1.73 sqM); Phosphorus 3.8 mg/dL (2.5-4.5); Total Bilirubin 0.9 mg/dL (0.2-1.3); Total Protein 6.7 g/dL (6.3-8.2)
[2024-08-04 08:56] VITALS: RESP 20; TEMP 97.7
--- NOTE | 2024-08-04 09:52 | P.PN ---
Subjective Progress Note Date: 08/04/24 This is Jeffery Mendoza NP, I'm dictating on behalf of Dr. Patrick's H&P and A&P. Patient was interviewed and examined. Patient is a pleasant 59-year-old male who presented to the hospital with acute onset of chest discomfort. Patient underwent a coronary angiogram and was found to have normal coronary arteries. They did note apical hypokinesia with a hyperdynamic base, consistent with Takotsubo cardiomyopathy. Patient reports no further chest pain today. He reports he took a shower yesterday, with subsequent tiredness. Otherwise no heart palpitations, no dizziness. GENERAL: Well-appearing, well-nourished and in no acute distress. NECK: Supple without JVD or thyromegaly. LUNGS: Breath sounds clear to auscultation bilaterally. Respiration equal and unlabored. No wheezes, rales or rhonchi. HEART: Regular rate and rhythm without murmurs, rubs or gallops. S1 and S2 heard. EXTREMITIES: Normal range of motion, no edema. No clubbing or cyanosis. Peripheral pulses intact and strong. VITALS: Temp 97.7, pulse 60, respirations 20, blood pressure 107/70, O2 saturation 92% on room air TELEMETRY: Sinus mechanism LABS: White count 10.5, hemoglobin 15, platelets 308, sodium 137, potassium 4.3, BUN 21, creatinine 0.99, magnesium 2.1, triglycerides 108, cholesterol 211, LDL 137. 8, HDL 51.6 IMPRESSION: 1. Chest discomfort 2. Takotsubo cardiomyopathy PLAN: Continue GI prophylaxis. Continue metoprolol 12.5 mg twice daily. Continue Farxiga and losartan. No further recommendations from a cardiology standpoint. Patient may be discharged home. Objective - Vital Signs Vital signs: Vital Signs Temp 97.7 F 08/04/24 08:00 Pulse 60 08/04/24 08:00 Resp 20 08/04/24 08:00 BP 107/70 08/04/24 08:00 Pulse Ox 92 L 08/04/24 08:00 FiO2 Intake & Output 08/03/24 08/04/24 08/04/24 18:59 06:59 18:59 Intake Total 20 110 Balance 20 110 Weight 79.9 kg Intake: IV 20 Invasive Line 1 10 Invasive Line 2 10 Oral 110 Other: Voiding Method Toilet # Voids 3 2 - Labs CBC & Chem 7: 08/04/24 07:39 08/04/24 07:39 Labs: Abnormal Lab Results - Last 24 Hours (Table) 08/03/24 08/04/24 Range/Units 06:28 07:39 Chloride 108 H (98-107) mmol/L Carbon Dioxide 21 L (22-30) mmol/L BUN 21 H (9-20) mg/dL Cholesterol 211.00 H (0.00-200.00) mg/dL LDL Cholesterol, Calc 137.8 H (0.0-131.0) mg/dL
[2024-08-04 10:55] VITALS: BP 112/70; PULSE 68
--- NOTE | 2024-08-04 12:39 | P.DS ---
Providers Date of admission: 08/02/24 14:47 Expected date of discharge: 08/04/24 Attending physician: Rowdy Medrano Consults: 08/02/24 14:45 Consult Physician Stat Consulting Provider: Quinton Patrick Consult Reason/Comments: STEMI Do you want consulting provider notified?: Already Contacted Primary care physician: Physician Nonstaff Hospital Course: Discharge Diagnosis: Takotsubo's cardiomyopathy Dyslipidemia Type II non-STEMI due to Takotsubo's Systolic cardiomyopathy Gallbladder polyps Hospital Course: Patient is a 59-year-old with known asthma, prior SVT, and prior tobacco use who presented to the emergency department with complaints of chest pain. In the emergency department he underwent extensive evaluation. Initial vital signs are within normal limits. Initial laboratory analysis was remarkable for a troponin of 0.231. He was seen by cardiology and underwent cardiac catheterization which showed normal coronary arteries but findings consistent with Takotsubo's cardiomyopathy and ejection fraction of 30 to 35%. Echocardiogram confirmed Takotsubo's with a EF of less than 35%. Patient gallbladder ultrasound showed possible calcified gallstones versus polyps and recommended 6 months follow-up. CT of the chest was without pulmonary embolism but did show thoracic aortic aneurysm at 43 mm. On 08/04 patient's chest pain and shortness of breath has improved. He was seen by cardiology and was cleared for discharge. Orthostatic vitals were negative. Ideally could have Cozaar added at later time for cardiomyopathy, however currently blood pressure is on the low end of normal. CVD risk score of 5.8 consistent with need for moderate intensity statin. Follow-up: Check blood pressure twice daily and make a log. Follow-up with Dr. Patrick next week. Follow-up with your primary care physician in 2 weeks. Ascending thoracic aortic aneurysm of 43 mm which should be followed. Gallbladder polyps versus adherent gallstone-multiple hyperechoic foci along the wall with largest measuring 0.3 cm possible polyps. Follow-up in 6 months to ensure stability. Patient seen and examined at bedside. Much better than yesterday. No chest pain. No shortness of breath. No nausea or vomiting. Vital signs reviewed and stable. General: Nontoxic, no distress, appears at stated age Cardiovascular: S1S2 reg, no murmur, positive posterior tibial pulse bilateral, Lungs: CTA bilateral, no rhonchi, no rales, no accessory muscle use Abdominal: Soft, nontender to palpation, no guarding, no appreciable organomegaly Ext: No gross muscle atrophy, no edema b/l lower extremities, no contractures Neuro: CN II-XI grossly intact, no focal neuro deficits Psych: Alert, oriented, appropriate affect A total of 35 minutes of time were spent preparing this complex discharge summary. Patient was discharged on 08/04/24. This dictation was prepared using [employer] voice recognition software. Though every attempt is made to correct errors during dictation some may still exist. Patient Condition at Discharge: Stable Plan - Discharge Summary New Discharge Prescriptions: New Metoprolol Tartrate [Lopressor] 12.5 mg PO BID #60 tab Atorvastatin Calcium [Lipitor] 40 mg PO DAILY #30 tab Empagliflozin [Jardiance] 25 mg PO DAILY #30 tab Continue Fluticasone Propion/Salmeterol [Advair 500-50 Diskus] 1 puff INHALATION RT- BID Albuterol Inhaler [Ventolin Hfa Inhaler] 1 - 2 puff INHALATION RT-Q6H PRN PRN Reason: Shortness Of Breath ALPRAZolam [Xanax] 0.25 mg PO HS FLUoxetine HCL [PROzac] 10 mg PO DAILY Montelukast [Singulair] 10 mg PO HS FLUoxetine HCL [PROzac] 20 mg PO DAILY traZODone HCL [Desyrel] 50 mg PO HS Discontinued tadalafiL 10 mg PO DAILY PRN PRN Reason: e.d. Discharge Medication List Albuterol Inhaler [Ventolin Hfa Inhaler] 1 - 2 puff INHALATION RT-Q6H PRN 01/07/18 [History] Fluticasone Propion/Salmeterol [Advair 500-50 Diskus] 1 puff INHALATION RT-BID 01/07/18 [History] ALPRAZolam [Xanax] 0.25 mg PO HS 08/02/24 [History] FLUoxetine HCL [PROzac] 10 mg PO DAILY 08/02/24 [History] FLUoxetine HCL [PROzac] 20 mg PO DAILY 08/02/24 [History] Montelukast [Singulair] 10 mg PO HS 08/02/24 [History] traZODone HCL [Desyrel] 50 mg PO HS 08/02/24 [History] Atorvastatin Calcium [Lipitor] 40 mg PO DAILY #30 tab 08/04/24 [Rx] Empagliflozin [Jardiance] 25 mg PO DAILY #30 tab 08/04/24 [Rx] Metoprolol Tartrate [Lopressor] 12.5 mg PO BID #60 tab 08/04/24 [Rx] Follow up Appointment(s)/Referral(s): Quinton Patrick MD [STAFF PHYSICIAN] - 1 Week (please call office when open to make follow up appointment) Randaltalani,Physician [Primary Care Provider] - 1-2 days Patient Instructions/Handouts: After Radial Heart Catheterization (GEN) Activity/Diet/Wound Care/Special Instructions: Activity: tolerated Diet: Heart Healthy Special Instructions: Off work though 08/12 Please obtain a blood pressure cuff and check blood pressure twice daily and 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 Gallbladder polyps versus adherent gallstone-multiple hyperechoic foci along the wall with largest measuring 0.3 cm possible polyps. Follow-up in 6 months to ensure stability. Discharge/Stand Alone Forms: Work/School Release / Restrict Discharge Disposition: HOME SELF-CARE
== END 2024-08-04 14:00 | disposition home or self-care (01) | DRG 281 ==
LOC: EC 14:38 → SUPCPDRO 14:38 → 2SICU 14:47 → 3SCARD 15:48
PROVIDERS: ADMIT Student in an Organized Health Care Education/Training Program; ATTEND Student in an Organized Health Care Education/Training Program
PROC: 4A023N7 Measurement of Cardiac Sampling and Pressure, Left Heart, Percutaneous Approach (ICD-10-PCS; principal; 2024-08-02 14:47)
PROC: B2111ZZ Fluoroscopy of Multiple Coronary Arteries using Low Osmolar Contrast (ICD-10-PCS; principal; 2024-08-02 14:47)
PROC: B2151ZZ Fluoroscopy of Left Heart using Low Osmolar Contrast (ICD-10-PCS; principal; 2024-08-02 14:47)
DX: I51.81 Takotsubo syndrome (principal); I42.8 Other cardiomyopathies; I21.A1 Myocardial infarction type 2; I47.10 Supraventricular tachycardia, unspecified; I71.20 Thoracic aortic aneurysm, without rupture, unspecified; I95.9 Hypotension, unspecified; I71.21 Aneurysm of the ascending aorta, without rupture; K82.4 Cholesterolosis of gallbladder; J45.909 Unspecified asthma, uncomplicated; F41.9 Anxiety disorder, unspecified; F32.A Depression, unspecified; E78.5 Hyperlipidemia, unspecified; Z79.899 Other long term (current) drug therapy; Z87.891 Personal history of nicotine dependence; Z98.61 Coronary angioplasty status; Z79.84 Long term (current) use of oral hypoglycemic drugs
CPT/HCPCS: 36415; 71045; 71046; 71275; 76705; 80053; 80061; 83036; 83735; 83880; 84100; 84443; 84484; 85025; 85027; 85610; 85730; 93005; 93306; 93458; 94640; 94760; 96374; 99291